=== PATIENT | female | born 1990 | race Caucasian/White ===

== ENCOUNTER 2016-10-16 06:40 | Day surgery (SDC) | payer BC ==
[2016-10-12 14:35] VITALS: BMI 36.6
[~2016-10-16 06:40] MED LIST: LACTATED RINGERS 1,000 ML IV SCH
[2016-10-16 07:05] VITALS: TEMP 97.7
[2016-10-16 07:19] LABS: Glucose,Whole Blood 99 mg/dL (75-99)
[2016-10-16] MEDS ORDERED: LIDOCAINE 1% INJ 10MG/ML (20 ML MDV) ONE (08:00)
[2016-10-16] MEDS ORDERED: PROPOFOL 10 MG/ML 20 ML VIAL IV ONE (08:00)
[2016-10-16 08:32] VITALS: RESP 16
[2016-10-16 08:55] VITALS: BP 146/82; PULSE 86
--- NOTE | 2016-10-16 09:09 | P.PCN ---
Date of Procedure: 10/16/16 Procedure(s) Performed: Procedures: 1. Esophagogastroduodenoscopy and biopsy. 2. Colonoscopy and biopsy. Preoperative diagnosis: Diarrhea and gastroesophageal reflux. Postoperative diagnosis: 1. Small sliding hiatal hernia with no obvious esophagitis or complicated reflux disease. 2. Mild antral gastritis. 3. Normal colon and terminal ileum. 4. Biopsies obtained from the duodenum, antrum , esophagus, terminal ileum and right colon. Preparation: HalfLytely prep. Sedation: Was provided by anesthesia. Brief clinical history: The patient is a 26-year-old female who was evaluated in the office earlier this month regarding reflux symptoms and diarrhea. She was diagnosed with gastroesophageal reflux disease in 2007 and apparently her symptoms has worsened over the course of the prior month or so despite taking omeprazole 40 mg daily since she was 22. No alarm symptoms. Her omeprazole was increased to twice a day the first week of September and apparently that hasn't improved her heartburn by 75% or so. In addition, the patient has had diarrhea for the last year having 6-7 bowel movements daily, loose and urgent, with no bleeding. No weight loss. This evaluation is to assess for complicated reflux disease inflammatory bowel disease or other pathology. Procedure: With the patient on her left lateral decubitus position and after informed consent and adequate sedation, I passed the Olympus-GIF 160 video upper endoscope through the cricopharyngeus down the esophagus. GE junction was around 36 cm from the incisors and there was a small 1-2 cm sliding hiatal hernia. The esophagus did not show any erosions, ulcers, strictures or [place]' s esophagus. The endoscope was then advanced into the stomach which was insufflated with air and inspected in detail including the retroflex view in the cardia. There was some mottling and erythema in the antrum but no ulcers or erosions. Pyloric channel, duodenal bulb, post bulbar area and descending duodenum appeared within normal limits. Because of her symptoms, I obtained biopsies from the duodenum, antrum and esophagus then the endoscope was withdrawn and I then proceeded to do colonoscopy. Perianal area did not show any fissures or fistulas. There were no masses felt on digital rectal examination. The Olympus CFQ 160L video colonoscope was then inserted in the rectum in the usual fashion and advanced to the cecum. I intubated the ileocecal valve and examined the terminal ileum as well. Terminal ileum and colon appeared healthy with no edema, erythema, friability, ulceration, exudation or spontaneous bleeding. I obtained biopsies from the terminal ileum and right colon and I retroflexed endoscope in the rectum before the endoscope was withdrawn. The patient tolerated the procedure well. Plan: The patient was reassured. I discussed with her parents who are with her today. She will follow-up in the office as planned early next month and we will keep you updated on her progress.
== END 2016-10-16 09:26 | disposition home or self-care (01) ==
LOC: ORWHC2ENDO 06:40
DX: K29.50 Unspecified chronic gastritis without bleeding (principal); K44.9 Diaphragmatic hernia without obstruction or gangrene; K21.0 Gastro-esophageal reflux disease with esophagitis; E11.9 Type 2 diabetes mellitus without complications; F41.9 Anxiety disorder, unspecified; J45.909 Unspecified asthma, uncomplicated; E03.9 Hypothyroidism, unspecified; Z79.84 Long term (current) use of oral hypoglycemic drugs; Z79.899 Other long term (current) drug therapy; Z79.51 Long term (current) use of inhaled steroids
CPT/HCPCS: 81025; 88305; 88342; 45380; 43239; J2001; J2704

== ENCOUNTER → 2016-11-15 | Outpatient (CLI) | payer BC ==
[2016-11-15 07:03] LABS: CH 25.1; CHCM 32.2; HCT 36.5 % (34.0-46.0); HGB 11.8 gm/dL (11.4-16.0); MCH 25.3 pg (25.0-35.0); MCHC 32.4 g/dL (31.0-37.0); MCV 78.2 fL (80.0-100.0); Mean Platelet Volume 7.1; RBC 4.67 m/uL (3.80-5.40); RDW 13.8 % (11.5-15.5); WBC 10.1 k/uL (3.8-10.6)
[2016-11-15 07:14] LABS: AST 12 U/L (14-36); Blood Urea Nitrogen 10 mg/dL (7-17); Carbon Dioxide 25 mmol/L (22-30); Chloride 107 mmol/L (98-107); Glucose 103 mg/dL (74-99); Non-African American GFR(MDRD) >60 (>60 ml/min/1.73 sqM); Total Bilirubin 0.4 mg/dL (0.2-1.3); Total Protein 6.8 g/dL (6.3-8.2)
[2016-11-15 08:01] LABS: ALT 15 U/L (9-52); Alkaline Phosphatase 81 U/L (38-126); Anion Gap 10 mmol/L; Calcium 9.2 mg/dL (8.4-10.2); Potassium 4.3 mmol/L (3.5-5.1); Sodium 142 mmol/L (137-145)
[2016-11-15 13:12] LABS: Hemoglobin A1C 5.6 % (4.2-6.1)
== END ==
LOC: LABWHC1 06:34
PROVIDERS: ATTEND Physician Assistant
DX: R53.83 Other fatigue (principal)
CPT/HCPCS: 36415; 80053; 83036; 84443; 85027

== ENCOUNTER → 2016-11-15 | Outpatient (CLI) | payer BC ==
--- NOTE | 2016-11-15 09:26 | NM ---
EXAMINATION TYPE: NM gastric emptying study DATE OF EXAM: 11/15/2016 9:00 AM COMPARISON: NONE HISTORY: Gastroesophageal reflux Following administration of 2.2 mCi Tc 99m Sulfur Colloid with 1 cup of oatmeal projection images of the abdomen were obtained 10 minutes post ingestion. When possible, both anterior and posterior proje ction images were obtained to allow the calculation of the geometric mean activity. Clearance: 88% % T1-enhanced Half-life: 25 min Gastroesophageal reflux: None IMPRESSION: Gastric emptying: Normal Gastroesophageal reflux: None Gastric emptying normal percentage values: 30 minutes: <70% of retention (> 30% emptying) suggests abnormally fast emptying. 60 minutes: <90% retention (>10% emptying) is normal; less than 30% retention (>70% emptying) suggest s abnormally rapid emptying. 90 minutes: <65% retention (> 35% emptying) is normal. 120 minutes: <60% retention (> 40% emptying) is normal. 180 minutes: <30% retention (> 70% emptying) is normal. Gastric emptying T-1/2: Solid: The normal range is 60-105 minutes Liquid only: Normal range is 10-45 minutes. Liquid only-children: At 60 minutes, normal range is 44-58 % . Liquid only-infants: At 60 minutes, normal range is 32-64 %. Additional references: Gastric Emptying Scintigraphy [email or web address]
== END | disposition home or self-care (01) ==
LOC: RADNMMAIN 06:49
PROVIDERS: ATTEND Internal Medicine
DX: K21.9 Gastro-esophageal reflux disease without esophagitis (principal)
CPT/HCPCS: 78264; A9541

== ENCOUNTER 2017-09-19 13:32 | Emergency (ER) | payer OTHER ==
[2017-09-19] MEDS ORDERED: METOCLOPRAMIDE 5 MG/ML 2 ML VIAL IVP STA (14:27)
[2017-09-19] MEDS ORDERED: SODIUM CHLORIDE 0.9% 1,000 ML IV STA (14:27)
[2017-09-19] MEDS ORDERED: ONDANSETRON 4 MG/2 ML VIAL IVP STA (14:27)
[2017-09-19] MEDS ORDERED: MORPHINE SULFATE 4 MG/ML SYRINGE IVP STA (14:27)
[2017-09-19] MEDS ORDERED: FAMOTIDINE 20 MG/2 ML VIAL IV STA (14:29)
[2017-09-19 15:02] LABS: Basophils % (A) 0 %; Eosinophils % (A) 0 %; HCT 38.2 % (34.0-46.0); HGB 12.2 gm/dL (11.4-16.0); Hypochromasia Slight; Lymphocytes # (A) 1.4 k/uL (1.0-4.8); Lymphocytes % (A) 8 %; MCH 24.2 pg (25.0-35.0); MCHC 31.8 g/dL (31.0-37.0); Mean Platelet Volume 7.1; Microcytosis Slight; Monocytes # (A) 0.3 k/uL (0-1.0); Monocytes % (A) 2 %; Neutrophils # (A) 14.3 k/uL (1.3-7.7); Neutrophils % (A) 89 %; Platelet Count 399 k/uL (150-450); RBC 5.02 m/uL (3.80-5.40); RDW 14.4 % (11.5-15.5)
[2017-09-19 15:06] LABS: Appearance,Urine Clear (Clear); Bacteria,Urine Rare /hpf; Bilirubin,Urine Negative (Negative); Blood,Urine Negative (Negative); Color,Urine Yellow; Glucose,Urine (UA) Negative (Negative); Ketones,Urine 2+ (Negative); Leukocyte Esterase,Urine Trace (Negative); Mucus,Urine Rare /hpf; Protein,Urine Trace (Negative); RBC,Urine 2 /hpf (0-5); Specific Gravity,Urine 1.018 (1.001-1.035); Squamous Epithelial Cell,Urine 4 /hpf (0-4); Urobilinogen,Urine <2.0 mg/dL (<2.0); WBC,Urine 4 /hpf (0-5)
--- NOTE | 2017-09-19 15:08 | ED ---
Nausea/Vomiting/Diarrhea HPI - General Chief complaint: Nausea/Vomiting/Diarrhea Stated complaint: Vomiting/Headache Time Seen by Provider: 09/19/17 14:06 Source: patient Mode of arrival: wheelchair Limitations: no limitations - History of Present Illness Initial comments: 27 years old who have a headache ongoing for last 18 days now she has nausea she threw up multiple times this morning she said she vomited more than 30 times since morning she denies any history of peptic ulcer disease no history of migraines herself but she does have a family history of migraines and mom has a history of migraines she had the seen her primary care Of days ago they were a head CT she had a head CT done this morning which was reviewed by myself it is within normal range and test is unremarkable. She denies any fever no chills no neck stiffness no signs of any meningitis no chest pain or shortness of breath no abdominal pain no frequency urgency dysuria no symptoms of TIA or CVA - Related Data Home Medications Medication Instructions Recorded Confirmed Budesonide-Formot 160-4.5 Mcg 1 puff INHALATION RT-BID 10/12/16 09/19/17 [Symbicort 160-4.5 Mcg Inhaler] Ethynodiol D-Ethinyl Estradiol 1 tab PO DAILY 09/19/17 09/19/17 [Zovia 1-35E Tablet] FLUoxetine HCL [PROzac] 20 mg PO DAILY 09/19/17 09/19/17 Lipase/Protease/Amylase [Melquiades Brewster 12,000 units PO DAILY 09/19/17 09/19/17 12,000 Units Capsule] Pc Maintenance Technician Thyroid 30mg 30 mg PO DAILY 09/19/17 09/19/17 Omeprazole 40 mg PO BID 09/19/17 09/19/17 Previous Rx's Medication Instructions Recorded Amoxicillin 500 mg PO Q8H #30 capsule 09/19/17 oxyCODONE-APAP 5-325MG [Percocet 1 tab PO Q6HR PRN #10 tab 09/19/17 5-325 mg] predniSONE 50 mg PO DAILY #5 tablet 09/19/17 Allergies Allergy/AdvReac Type Severity Reaction Status Date / Time No Known Allergies Allergy Verified 09/19/17 14:19 Review of Systems ROS Statement: Those systems with pertinent positive or pertinent negative responses have been documented in the HPI. ROS Other: All systems not noted in ROS Statement are negative. Past Medical History Past Medical History: Asthma, Diabetes Mellitus, GERD/Reflux, Thyroid Disorder Additional Past Medical History / Comment(s): vomiting, diarrhea, back pain History of Any Multi-Drug Resistant Organisms: None Reported Past Surgical History: Orthopedic Surgery Past Anesthesia/Blood Transfusion Reactions: No Reported Reaction Past Psychological History: Anxiety, Depression Smoking Status: Never smoker Past Alcohol Use History: None Reported Past Drug Use History: None Reported - Past Family History Mother Family Medical History: No Reported History General Exam - General Exam Comments Initial Comments: General: The patient is awake and alert, in mild distress Skin: Skin is warm and dry and no rashes or lesions are noted. Eye: Pupils are equal, round and reactive to light, extra-ocular movements are intact; there is normal conjunctiva bilaterally. Ears, nose, mouth and throat: There are moist mucous membranes and no oral lesions. Neck: The neck is supple, there is no tenderness or JVD. Mild tenderness over the frontal sinuses bilaterally as well as over the ethmoid sinuses Cardiovascular: There is a regular rate and rhythm. No murmur, rub or gallop is appreciated. Respiratory: To auscultation bilateral, no wheezing no rhonchi no distress respiratory medina noticed Gastrointestinal: Soft, non-distended, non-tender abdomen without masses or organomegaly noted. There is no rebound or guarding present. Bowel sounds are unremarkable. Back: There is no tenderness to palpation in the midline. There is no obvious deformity. Musculoskeletal: Normal ROM, no tenderness, There is no pedal edema. There is no calf tenderness or swelling. No cords were appreciated. Neurological: CN II-XII intact, Cranial nerves III through XII are intact. There are no obvious motor or sensory deficits. Coordination appears grossly intact. Speech is normal. Psychiatric: Cooperative, appropriate mood & affect, normal judgment. Limitations: no limitations Course Vital Signs 09/19/17 09/19/17 13:40 15:48 Temperature 98.5 F Pulse Rate 88 87 Respiratory 18 18 Rate Blood Pressure 128/78 123/67 O2 Sat by Pulse 100 100 Oximetry - Reevaluation(s) Reevaluation #1: As reassessed at 1630, she is feeling better white count is elevated most probably secondary to emesis there is a left shift compressive metabolic panel is within normal range she is not nauseous anymore considering urological CT tones in the urine didn't do a trial of by mouth fluid she felt that if she keeps it down the wrong quite and discharge her CT of the brain was normal which was done as an outpatient by primary care and she does have a sinusitis and begun on Saturday course of antibiotics 09/19/17 16:40 Medical Decision Making - Lab Data Result diagrams: 09/19/17 14:42 09/19/17 14:42 Lab Results 09/19/17 09/19/17 09/19/17 Range/Units 14:42 14:42 14:50 WBC 16.0 H (3.8-10.6) k/uL RBC 5.02 (3.80-5.40) m/uL Hgb 12.2 (11.4-16.0) gm/dL Hct 38.2 (34.0-46.0) % MCV 76.0 L (80.0-100.0) fL MCH 24.2 L (25.0-35.0) pg MCHC 31.8 (31.0-37.0) g/dL RDW 14.4 (11.5-15.5) % Plt Count 399 (150-450) k/uL Neutrophils % 89 % Lymphocytes % 8 % Monocytes % 2 % Eosinophils % 0 % Basophils % 0 % Neutrophils # 14.3 H (1.3-7.7) k/uL Lymphocytes # 1.4 (1.0-4.8) k/uL Monocytes # 0.3 (0-1.0) k/uL Eosinophils # 0.0 (0-0.7) k/uL Basophils # 0.0 (0-0.2) k/uL Hypochromasia Slight Microcytosis Slight Sodium 138 (137-145) mmol/L Potassium 4.5 (3.5-5.1) mmol/L Chloride 104 (98-107) mmol/L Carbon Dioxide 22 (22-30) mmol/L Anion Gap 12 mmol/L BUN 14 (7-17) mg/dL Creatinine 0.61 (0.52-1.04) mg/dL Est GFR (MDRD) Af Amer >60 (>60 ml/min/1.73 sqM) Est GFR (MDRD) Non-Af >60 (>60 ml/min/1.73 sqM) Glucose 104 H (74-99) mg/dL Calcium 9.4 (8.4-10.2) mg/dL Total Bilirubin 0.3 (0.2-1.3) mg/dL AST 19 (14-36) U/L ALT 25 (9-52) U/L Alkaline Phosphatase 98 (38-126) U/L Total Protein 7.1 (6.3-8.2) g/dL Albumin 4.0 (3.5-5.0) g/dL Amylase 78 (30-110) U/L Lipase 108 (23-300) U/L Urine Color Yellow Urine Appearance Clear (Clear) Urine pH 8.0 (5.0-8.0) Ur Specific [place] 1.018 (1.001-1.035) Urine Protein Trace H (Negative) Urine Glucose (UA) Negative (Negative) Urine Ketones 2+ H (Negative) Urine Blood Negative (Negative) Urine Nitrite Negative (Negative) Urine Bilirubin Negative (Negative) Urine Urobilinogen <2.0 (<2.0) mg/dL Ur Leukocyte Esterase Trace H (Negative) Urine RBC 2 (0-5) /hpf Urine WBC 4 (0-5) /hpf Ur Squamous Epith Cells 4 (0-4) /hpf Urine Bacteria Rare H (None) /hpf Urine Mucus Rare H (None) /hpf Disposition Clinical Impression: Headache, Sinusitis, Intractable nausea and vomiting Disposition: HOME SELF-CARE Condition: Good Instructions: Acute Nausea and Vomiting in Children (ED), Acute Nausea and Vomiting (ED) Prescriptions: Amoxicillin 500 mg PO Q8H #30 capsule oxyCODONE-APAP 5-325MG [Percocet 5-325 mg] 1 tab PO Q6HR PRN #10 tab PRN Reason: Pain predniSONE 50 mg PO DAILY #5 tablet Referrals: Naomi Soliz DO [Primary Care Provider] - 1-2 days
[2017-09-19 15:11] LABS: ALT 25 U/L (9-52); AST 19 U/L (14-36); Alkaline Phosphatase 98 U/L (38-126); Amylase 78 U/L (30-110); Anion Gap 12 mmol/L; Blood Urea Nitrogen 14 mg/dL (7-17); Calcium 9.4 mg/dL (8.4-10.2); Carbon Dioxide 22 mmol/L (22-30); Chloride 104 mmol/L (98-107); Glucose 104 mg/dL (74-99); Lipase 108 U/L (23-300); Potassium 4.5 mmol/L (3.5-5.1); Sodium 138 mmol/L (137-145); Total Bilirubin 0.3 mg/dL (0.2-1.3); Total Protein 7.1 g/dL (6.3-8.2)
[2017-09-19] MEDS ORDERED: KETOROLAC 30 MG/ML 1 ML VIAL IVP STA (15:50)
[2017-09-19] MEDS ORDERED: DEXAMETHASONE SOD PHOSPHATE 10 MG/ML 1 ML VIAL IV STA (16:16)
[2017-09-19 17:15] VITALS: BP 117/71; PULSE 83; RESP 17; TEMP 97.4
== END 2017-09-19 17:25 | disposition home or self-care (01) ==
LOC: EC 13:32
DX: J32.9 Chronic sinusitis, unspecified (principal); R11.2 Nausea with vomiting, unspecified; J45.909 Unspecified asthma, uncomplicated; K21.9 Gastro-esophageal reflux disease without esophagitis; E07.9 Disorder of thyroid, unspecified; Z79.3 Long term (current) use of hormonal contraceptives; Z79.51 Long term (current) use of inhaled steroids; Z79.899 Other long term (current) drug therapy
CPT/HCPCS: 36415; 80053; 82150; 83690; 85025; 81001; 99284; 96374; 96375 ×5; 96361; J2270; J1100; J2765; J2405; J1885

== ENCOUNTER → 2017-09-19 | Outpatient (CLI) | payer OTHER ==
--- NOTE | 2017-09-19 13:26 | CT ---
EXAMINATION TYPE: CT brain wo con DATE OF EXAM: 09/19/2017 COMPARISON: 06/11/2011 HISTORY: Headache with nausea and vomiting CT DLP: 945.[address] of the brain was performed. The ventricles, basal cisterns and sulci overlying the cerebral convexities demonstrate a normal appe arance. There is no evidence for intracranial hemorrhage or sulcal effacement. No mass effects are seen. Osseous calvarium is intact. If symptoms persist consider MRI as clinically warranted. Mild mucosal thickening left maxillary sin us much improved from prior study. IMPRESSION: 1. No acute intracranial process is seen at this time. Mild chronic sinusitis left maxillary sinus.
== END | disposition home or self-care (01) ==
LOC: RADCTMAIN 12:05
PROVIDERS: ATTEND Nurse Practitioner Family
DX: G44.001 Cluster headache syndrome, unspecified, intractable (principal); N91.2 Amenorrhea, unspecified; R11.2 Nausea with vomiting, unspecified
CPT/HCPCS: 70450; 81025

== ENCOUNTER → 2017-10-08 | Outpatient (CLI) | payer OTHER ==
--- NOTE | 2017-10-08 21:13 | US ---
EXAMINATION TYPE: US pelvic complete DATE OF EXAM: 10/08/2017 COMPARISON: NONE CLINICAL HISTORY: E28.2 PCOS. patient having issues with finding the right control TECHNIQUE: TA Date of LMP: 09/24/2017 EXAM MEASUREMENTS: Uterus: 7.0 x 3.9 x 2.2 cm Endometrial Stripe: 0.8 cm Right Ovary: 2.7 x 1.9 x 1.5 cm Left Ovary: 3.4 x 2.4 x 1.7 cm 1. Uterus: Anteverted wnl 2. Endometrium: wnl 3. Right Ovary: wnl 4. Left Ovary: multiple follicles seen 5. Bilateral Adnexa: wnl 6. Posterior cul-de-sac: wnl IMPRESSION: Unremarkable transabdominal ultrasound. Left ovarian follicles are seen although poorly v isualized given the transabdominal technique only.
== END ==
LOC: RADUSWWP 16:04
PROVIDERS: ATTEND Family Medicine
DX: E28.2 Polycystic ovarian syndrome (principal)
CPT/HCPCS: 76856

== ENCOUNTER → 2018-05-29 | Outpatient (CLI) | payer OTHER ==
--- NOTE | 2018-05-29 09:47 | USB ---
Reason for exam: clinical finding. History: Patient is nulliparous. Family history of breast cancer in maternal grandmother at age 70, breast cancer in maternal aunt at age 60, and breast cancer in maternal cousin at age 30. Took hormonal contraceptives for 8 years. Indicated problem(s): non-bloody discharge in both breasts. Physical Findings: Nurse did not find any significant physical abnormalities on exam. US Breast BILAT Right complete breast ultrasound includes all four quadrants, the retroareolar region and axilla. Finding demonstrates no cystic or solid lesion seen. Left complete breast ultrasound includes all four quadrants, the retroareolar region and axilla. Finding demonstrates no cystic or solid lesion seen. These results were verbally communicated with the patient and result sheet given to the patient on 05/29/18. ASSESSMENT: Negative, BI-RAD 1 RECOMMENDATION: Clinical management of both breasts. Manage on a clinical basis with regard to bilateral white discharge.
== END | disposition home or self-care (01) ==
LOC: RADMAMWWP 06:58
PROVIDERS: ATTEND Family Medicine
DX: O92.6 Galactorrhea (principal)

== ENCOUNTER 2019-11-28 20:14 | Emergency (ER) | payer OTHER ==
[2019-11-28 20:25] VITALS: RESP 18
[2019-11-28] MEDS ORDERED: ACETAMINOPHEN TAB 500 MG TAB PO STA (20:34)
[2019-11-28] MEDS ORDERED: SODIUM CHLORIDE 0.9% 1,000 ML IV STA (20:34)
--- NOTE | 2019-11-28 20:51 | ED ---
General Adult HPI - General Chief complaint: Abdominal Pain Stated complaint: cramping 16 and half wks preg Time Seen by Provider: 11/28/19 20:27 Source: patient, RN notes reviewed, old records reviewed Mode of arrival: ambulatory Limitations: no limitations - History of Present Illness Initial comments: 29-year-old female presenting with lower abdominal cramping. Patient is 16 weeks . . Denies hematuria or dysuria. No urinary frequency. Pain has been present throughout the day today. She also reports pain in her low back. Pain is constant in nature bilateral lower pelvic and lower back pain. She reports vaginal discharge. Normal bowel movement today, no change in bowel movements. No vomiting. No fever or chills. No upper abdominal pain. Patient had called her ledge man who recommended she present to the emergency department. - Related Data Home Medications Medication Instructions Recorded Confirmed Budesonide-Formot 160-4.5 Mcg 1 puff INHALATION RT-BID 10/12/16 09/19/17 [Symbicort 160-4.5 Mcg Inhaler] Ethynodiol D-Ethinyl Estradiol 1 tab PO DAILY 09/19/17 09/19/17 [Zovia 1-35E Tablet] FLUoxetine HCL [PROzac] 20 mg PO DAILY 09/19/17 09/19/17 Lipase/Protease/Amylase [Melquiades Brewster 12,000 units PO DAILY 09/19/17 09/19/17 12,000 Units Capsule] Entertainment Reporter Thyroid 30mg 30 mg PO DAILY 09/19/17 09/19/17 Omeprazole 40 mg PO BID 09/19/17 09/19/17 Previous Rx's Medication Instructions Recorded Amoxicillin 500 mg PO Q8H #30 capsule 09/19/17 oxyCODONE-APAP 5-325MG [Percocet 1 tab PO Q6HR PRN #10 tab 09/19/17 5-325 mg] predniSONE 50 mg PO DAILY #5 tablet 09/19/17 Cephalexin [Keflex] 500 mg PO Q12HR #20 cap 11/28/19 Allergies Allergy/AdvReac Type Severity Reaction Status Date / Time No Known Allergies Allergy Verified 11/28/19 20:25 Review of Systems ROS Statement: Those systems with pertinent positive or pertinent negative responses have been documented in the HPI. ROS Other: All systems not noted in ROS Statement are negative. Past Medical History Past Medical History: Asthma, Diabetes Mellitus, GERD/Reflux, Thyroid Disorder Additional Past Medical History / Comment(s): vomiting, diarrhea, back pain History of Any Multi-Drug Resistant Organisms: None Reported Past Surgical History: Orthopedic Surgery Past Anesthesia/Blood Transfusion Reactions: No Reported Reaction Past Psychological History: Anxiety Smoking Status: Never smoker Past Alcohol Use History: None Reported Past Drug Use History: None Reported - Past Family History Mother Family Medical History: No Reported History General Exam Limitations: no limitations General appearance: alert, in no apparent distress Head exam: Present: atraumatic, normocephalic Eye exam: Present: normal appearance, PERRL ENT exam: Present: mucous membranes dry Neck exam: Present: normal inspection. Absent: tenderness, meningismus Respiratory exam: Present: normal lung sounds bilaterally. Absent: respiratory distress, wheezes Cardiovascular Exam: Present: regular rate, normal rhythm GI/Abdominal exam: Present: soft, normal bowel sounds. Absent: distended, tenderness, guarding, rebound Extremities exam: Present: normal inspection, normal capillary refill Back exam: Present: normal inspection. Absent: CVA tenderness (R), CVA tenderness (L) Neurological exam: Present: alert, oriented X3. Absent: motor sensory deficit Psychiatric exam: Present: anxious Skin exam: Present: warm, dry, intact. Absent: cyanosis, diaphoretic Course Vital Signs 11/28/19 11/28/19 20:23 21:31 Temperature 99.5 F 98.1 F Pulse Rate 101 H 90 Respiratory 18 18 Rate Blood Pressure 167/100 127/81 O2 Sat by Pulse 100 97 Oximetry Medical Decision Making - Medical Decision Making 29 yo female 16 weeks gestation with lower abdominal cramping. Patient well- appearing on exam with stable vitals. Ultrasound showing single live intrauterine at 16 weeks 5 days with heart tones at 150 cervical length of 3 cm. Normal CBC, normal CMP, urinalysis showing 4 white cells and many bacteria. She is asymptomatic. She will be treated for a symptomatic bacteriuria in . I did discuss case with Dr. Jimenez who is her [employer] ME[employer]IC. Who does recommend continued outpatient follow-up at this time and is agreeable with discharge. Patient reevaluated and she is feeling better, pain is resolved. She is instructed on oral hydration. And will return with worsening or changing symptoms. - Lab Data Result diagrams: 11/28/19 20:49 11/28/19 20:49 Lab Results 11/28/19 11/28/19 11/28/19 Range/Units 20:26 20:49 20:49 WBC 11.7 H (3.8-10.6) k/uL RBC 4.56 (3.80-5.40) m/uL Hgb 12.0 (11.4-16.0) gm/dL Hct 37.1 (34.0-46.0) % MCV 81.4 (80.0-100.0) fL MCH 26.4 (25.0-35.0) pg MCHC 32.4 (31.0-37.0) g/dL RDW 14.7 (11.5-15.5) % Plt Count 291 (150-450) k/uL Neutrophils % 71 % Lymphocytes % 23 % Monocytes % 3 % Eosinophils % 1 % Basophils % 0 % Neutrophils # 8.2 H (1.3-7.7) k/uL Lymphocytes # 2.7 (1.0-4.8) k/uL Monocytes # 0.3 (0-1.0) k/uL Eosinophils # 0.1 (0-0.7) k/uL Basophils # 0.0 (0-0.2) k/uL Sodium 136 L (137-145) mmol/L Potassium 3.7 (3.5-5.1) mmol/L Chloride 105 (98-107) mmol/L Carbon Dioxide 24 (22-30) mmol/L Anion Gap 7 mmol/L BUN 4 L (7-17) mg/dL Creatinine 0.49 L (0.52-1.04) mg/dL Est GFR (CKD-EPI)AfAm >90 (>60 ml/min/1.73 sqM) Est GFR (CKD-EPI)NonAf >90 (>60 ml/min/1.73 sqM) Glucose 107 H (74-99) mg/dL Calcium 9.3 (8.4-10.2) mg/dL Total Bilirubin 0.1 L (0.2-1.3) mg/dL AST 25 (14-36) U/L ALT 21 (4-34) U/L Alkaline Phosphatase 65 (38-126) U/L Total Protein 6.6 (6.3-8.2) g/dL Albumin 3.6 (3.5-5.0) g/dL Amylase 49 (30-110) U/L Lipase 79 (23-300) U/L Urine Color Light Yellow Urine Appearance Cloudy H (Clear) Urine pH 6.0 (5.0-8.0) Ur Specific [place] 1.011 (1.001-1.035) Urine Protein Negative (Negative) Urine Glucose (UA) Negative (Negative) Urine Ketones Negative (Negative) Urine Blood Negative (Negative) Urine Nitrite Negative (Negative) Urine Bilirubin Negative (Negative) Urine Urobilinogen <2.0 (<2.0) mg/dL Ur Leukocyte Esterase Moderate H (Negative) Urine RBC 2 (0-5) /hpf Urine WBC 4 (0-5) /hpf Ur Squamous Epith Cells 1 (0-4) /hpf Amorphous Sediment Rare H (None) /hpf Urine Bacteria Many H (None) /hpf Urine Mucus Rare H (None) /hpf Disposition Clinical Impression: Abdominal pain affecting , Asymptomatic bacteriuria during Disposition: HOME SELF-CARE Condition: Good Instructions (If sedation given, give patient instructions): Abdominal Pain in (ED) Prescriptions: Cephalexin [Keflex] 500 mg PO Q12HR #20 cap Is patient prescribed a controlled substance at d/c from ED?: No Referrals: Naomi Soliz DO [Primary Care Provider] - 1-2 days Anu Jimenez MD [STAFF PHYSICIAN] - 1-2 days Time of Disposition: 21:50
[2019-11-28 20:54] LABS: Basophils % (A) 0 %; Eosinophils # (A) 0.1 k/uL (0-0.7); Eosinophils % (A) 1 %; HCT 37.1 % (34.0-46.0); Lymphocytes # (A) 2.7 k/uL (1.0-4.8); Lymphocytes % (A) 23 %; MCH 26.4 pg (25.0-35.0); MCHC 32.4 g/dL (31.0-37.0); MCV 81.4 fL (80.0-100.0); Mean Platelet Volume 8.5; Monocytes # (A) 0.3 k/uL (0-1.0); Monocytes % (A) 3 %; Neutrophils # (A) 8.2 k/uL (1.3-7.7); Neutrophils % (A) 71 %; Platelet Count 291 k/uL (150-450); RBC 4.56 m/uL (3.80-5.40); RDW 14.7 % (11.5-15.5); WBC 11.7 k/uL (3.8-10.6)
[2019-11-28 20:56] LABS: Amorphous Sediment,Urine Rare /hpf; Appearance,Urine Cloudy (Clear); Bacteria,Urine Many /hpf; Bilirubin,Urine Negative (Negative); Blood,Urine Negative (Negative); Color,Urine Light Yellow; Glucose,Urine (UA) Negative (Negative); Ketones,Urine Negative (Negative); Leukocyte Esterase,Urine Moderate (Negative); Mucus,Urine Rare /hpf; Nitrite,Urine Negative (Negative); Protein,Urine Negative (Negative); RBC,Urine 2 /hpf (0-5); Specific Gravity,Urine 1.011 (1.001-1.035); Squamous Epithelial Cell,Urine 1 /hpf (0-4); Urobilinogen,Urine <2.0 mg/dL (<2.0); WBC,Urine 4 /hpf (0-5)
[2019-11-28 21:03] LABS: ALT 21 U/L (4-34); AST 25 U/L (14-36); African American GFR (CKD) >90 (>60 ml/min/1.73 sqM); Albumin 3.6 g/dL (3.5-5.0); Alkaline Phosphatase 65 U/L (38-126); Amylase 49 U/L (30-110); Anion Gap 7 mmol/L; Blood Urea Nitrogen 4 mg/dL (7-17); Calcium 9.3 mg/dL (8.4-10.2); Carbon Dioxide 24 mmol/L (22-30); Chloride 105 mmol/L (98-107); Glucose 107 mg/dL (74-99); Non-African American GFR(CKD) >90 (>60 ml/min/1.73 sqM); Potassium 3.7 mmol/L (3.5-5.1); Sodium 136 mmol/L (137-145); Total Bilirubin 0.1 mg/dL (0.2-1.3); Total Protein 6.6 g/dL (6.3-8.2)
--- NOTE | 2019-11-28 21:28 | US ---
EXAMINATION TYPE: US OB >= 14 wk fetus DATE OF EXAM: 11/28/2019 COMPARISON: None CLINICAL HISTORY: ab pain in preg TECHNIQUE: Transabdominal ultrasound of the gravid uterus. GESTATIONAL AGE / DATING Physician Established: ( 16 weeks/5 days) EDC: 05/12/20 Dates by LMP: (16 weeks/ 5 days) EDC: 05/12/20 Dates by First Scan: not available Dates by Current Scan: ( 16 weeks/5 days) EDC: 05/10/20 Beta HCG (if available): Not available at this time SURVEY IUP: Single PLACENTA: Posterior PREVIA: Low Lying ISABEL: 11.9 cm CERVICAL LENGTH (transabdominal: norm > 3.0cm): 3.0 cm BIOMETRY PRESENTATION: Breech BPD: 3.5 cm 16 weeks / 6 days HC: 12.9 cm 16 weeks / 4 days AC: 10.9 cm 16 weeks / 6 days FL: 2.2 cm 16 weeks / 5 days ESTIMATED WEIGHT IN GRAMS: 166 grams ESTIMATED WEIGHT IN LBS/OZ: 0 lbs. 6 oz. WEIGHT PERCENTAGE BASED ON ESTABLISHED DATES: 71% HC/AC: 1.2 FL/AC: 20.3 HEART RATE: 150 bpm RHYTHM: Normal MATERNAL WALL MEASUREMENT: 3.7 cm from skin to anterior uterine wall (if exam limited due to body hab itus). IMPRESSION: Single viable intrauterine . Breech position at this time.
[2019-11-28 21:32] VITALS: BP 127/81; PULSE 90; TEMP 98.1
== END 2019-11-28 22:02 | disposition home or self-care (01) ==
LOC: EC 20:14
DX: O26.892 Other specified pregnancy related conditions, second trimester (principal); R10.30 Lower abdominal pain, unspecified; R10.2 Pelvic and perineal pain; M54.5 Low back pain; O99.89 Other specified diseases and conditions complicating pregnancy, childbirth and the puerperium; R82.71 Bacteriuria; O99.282 Endocrine, nutritional and metabolic diseases complicating pregnancy, second trimester; E07.9 Disorder of thyroid, unspecified; O99.342 Other mental disorders complicating pregnancy, second trimester; F41.9 Anxiety disorder, unspecified; O99.512 Diseases of the respiratory system complicating pregnancy, second trimester; J45.909 Unspecified asthma, uncomplicated; O99.612 Diseases of the digestive system complicating pregnancy, second trimester; K21.9 Gastro-esophageal reflux disease without esophagitis; Z3A.16 16 weeks gestation of pregnancy; Z79.51 Long term (current) use of inhaled steroids; Z79.899 Other long term (current) drug therapy; Z79.890 Hormone replacement therapy
CPT/HCPCS: 36415; 76805; 80053; 81001; 82150; 83690; 85025; 96360; 99284

== ENCOUNTER 2020-03-07 13:42 | Outpatient (CLI) | payer OTHER ==
[2020-03-07] MEDS ORDERED: ACETAMINOPHEN TAB 325 MG TAB PO STA (14:57)
[2020-03-07 15:17] VITALS: PULSE 103; RESP 20; TEMP 99.2
[2020-03-07 15:32] LABS: Basophils % (A) 0 %; Eosinophils # (A) 0.1 k/uL (0-0.7); Eosinophils % (A) 0 %; HCT 35.9 % (34.0-46.0); HGB 11.2 gm/dL (11.4-16.0); Lymphocytes # (A) 2.3 k/uL (1.0-4.8); Lymphocytes % (A) 18 %; MCH 26.4 pg (25.0-35.0); MCHC 31.2 g/dL (31.0-37.0); MCV 84.8 fL (80.0-100.0); Mean Platelet Volume 9.2; Monocytes # (A) 0.4 k/uL (0-1.0); Monocytes % (A) 3 %; Neutrophils % (A) 78 %; Platelet Count 279 k/uL (150-450); RBC 4.23 m/uL (3.80-5.40); RDW 15.4 % (11.5-15.5); WBC 12.9 k/uL (3.8-10.6)
[2020-03-07 15:37] LABS: ALT 13 U/L (4-34); AST 19 U/L (14-36); African American GFR (CKD) >90 (>60 ml/min/1.73 sqM); Blood Urea Nitrogen 7 mg/dL (7-17); LDH 385 U/L (313-618); Non-African American GFR(CKD) >90 (>60 ml/min/1.73 sqM); Uric Acid 6.6 mg/dL (3.7-7.4)
[2020-03-07 15:43] LABS: Protein/Creatinine Ratio,Urine 0.161
[2020-03-07 15:45] LABS: Creatinine,Urine Random 62.1 mg/dL
[2020-03-07 16:18] VITALS: BP 130/80
--- NOTE | 2020-03-09 08:51 | P.MSEPDOC ---
Presenting Problems - Arrival Data Date of Arrival on Unit: 03/07/20 Time of Arrival on Unit: 13:50 Mode of Transport: Ambulatory - Complaint OB-Reason for Admission/Chief Complaint: Elevated Blood Pressure Medical History - Information : 1 Para: 0 Term: 0 : 0 Abortions: Spontaneous or Elective: 0 Number of Living Children: 0 - Gestational Age Gestational Age by ERON (wks/days): 30 Weeks and 4 Days - History Comment: type 2 diabetes (metformin), hypothyroidism (thyroid) Review of Systems - Review of Systems Constitutional: No problems Breast: No problems ENT: No problems Cardiovascular: No problems Respiratory: No problems Gastrointestinal: No problems Genitourinary: No problems Musculoskeletal: No problems Neurological: No problems Skin: No problems Vital Signs - Temperature Temperature: 99.2 F Temperature Source: Oral - Pulse Right Brachial Pulse Rate: 103 Pulse Assessment Method: Auscultation - Respirations Respiratory Rate: 20 Oxygen Delivery Method: Room Air O2 Sat by Pulse Oximetry: 98 - Blood Pressure Right Arm Blood Pressure: 130/80 Blood Pressure Mean: 96 Blood Pressure Source: Automatic Cuff Medical Screen Scoring (Pre) - Cervical Exam Dilation: Exam Deferred Effacement: Exam Deferred - Uterine Contractions Frequency: N/A Duration: N/A Intensity: N/A - Maternal Vital Signs Maternal Temperature: N/A Maternal Blood Pressure: Diastolic > 89 = 1 Signs of Preeclampsia: Headache = 1 Maternal Respirations: N/A - Maternal Trauma Maternal Trauma: N/A - Assessment - Baby A Baseline FHR: 135 Heart Rate - NICHD Category: Category I (Normal) = 0 NST: Reactive Position: N/A Station: N/A - Total Score - Baby A Total Score - Baby A: 2 - Total Score - Baby B Total Score - Baby B: 2 - Total Score - Baby C Total Score - Baby C: 2 - Level of Risk - Baby A Level of Risk - Baby A: Low (0-5) - Level of Risk - Baby B Level of Risk - Baby B: Low (0-5) - Level of Risk - Baby C Level of Risk - Baby C: Low (0-5) Physician Notification (Pre) - Physician Notified Spoke With: eder New Order Received: Yes - Notification Comment Comment: discharge home. see pot MES scoring in [facility]. Medical Screen Scoring (Post) - Cervical Exam Dilation: Exam Deferred Effacement: Exam Deferred - Uterine Contractions Frequency: N/A Duration: N/A Intensity: N/A - Maternal Vital Signs Maternal Temperature: N/A Maternal Blood Pressure: N/A Signs of Preeclampsia: Headache = 1 Maternal Respirations: N/A - Maternal Trauma Maternal Trauma: N/A - Assessment - Baby A Heart Rate: 135 Heart Rate - NICHD Category: Category I (Normal) = 0 NST: Reactive Position: N/A Station: N/A - Total Score Total Score - Baby A: 1 Total Score - Baby B: 1 Total Score - Baby C: 1 - Post Treatment Level of Risk Post Treatment Level of Risk - Baby A: Low (0-5) Post Treatment Level of Risk - Baby B: Low (0-5) Post Treatment Level of Risk - Baby C: Low (0-5) Physician Notification (Post) - Physician Notified Physician Notified Date: 03/07/20 Physician Notified Time: 16:14 Spoke WithAung gaines - Notification Comment Comment: followw up on this week as scheduled. to follow blood pressure guidelines as discussed by dr gaines in office. discuss signs and symptoms Disposition - Disposition OB Disposition: Discharge to home Discharge Date: 03/07/20 Discharge Time: 16:17 I agree with the RN Medical Screening Exam: Yes Risk & Benefit of care provided described in d/c instruction: Yes Diagnosis: PIH
== END 2020-03-07 16:30 | disposition home or self-care (01) ==
LOC: FBPOP 13:42
PROVIDERS: ATTEND Obstetrics & Gynecology
DX: O13.3 Gestational [pregnancy-induced] hypertension without significant proteinuria, third trimester (principal); Z3A.30 30 weeks gestation of pregnancy
CPT/HCPCS: 59025; 82565; 82570; 83615; 84156; 84450; 84460; 84520; 84550; 85025; 99215

== ENCOUNTER 2020-03-14 11:43 | Outpatient (CLI) | payer OTHER ==
[2020-03-14 13:49] VITALS: BP 125/80; PULSE 89; RESP 20; TEMP 98.4
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
== END 2020-03-14 13:39 | disposition home or self-care (01) ==
LOC: FBPOP 11:43
PROVIDERS: ATTEND Obstetrics & Gynecology
DX: O71.9 Obstetric trauma, unspecified (principal); Z3A.31 31 weeks gestation of pregnancy
CPT/HCPCS: 59025; 99213

== ENCOUNTER 2020-03-25 09:25 | Outpatient (CLI) | payer OTHER ==
[2020-03-25 10:20] LABS: Basophils % (A) 0 %; Eosinophils # (A) 0.1 k/uL (0-0.7); Eosinophils % (A) 1 %; HCT 35.9 % (34.0-46.0); HGB 11.3 gm/dL (11.4-16.0); Lymphocytes # (A) 2.5 k/uL (1.0-4.8); Lymphocytes % (A) 16 %; MCHC 31.6 g/dL (31.0-37.0); MCV 85.6 fL (80.0-100.0); Monocytes # (A) 0.5 k/uL (0-1.0); Monocytes % (A) 4 %; Neutrophils # (A) 11.6 k/uL (1.3-7.7); Neutrophils % (A) 78 %; Platelet Count 224 k/uL (150-450); RBC 4.19 m/uL (3.80-5.40); RDW 15.8 % (11.5-15.5)
[2020-03-25 11:53] VITALS: BP 139/90; PULSE 78; RESP 18; TEMP 96
[2020-03-25 11:55] LABS: Total Protein 24 Hour,Urine 920 mg/24hr (42.0-225.0); Total Volume 24 Hour,Urine 1000 mls (800-1800)
[2020-03-25] MEDS ORDERED: BETAMET ACET-BETAMETH SOD PHOS 6 MG/ML MDV IM SCH (12:30)
--- NOTE | 2020-03-25 12:39 | P.HPOB ---
History of Present Illness H&P Date: 03/25/20 Chief Complaint: preeclampsia at 33-3/7 weeks This is a 30 year old 1 para 0 woman with an estimated due date of 05/12/2020 based on first trimester ultrasound who presents at 33-3/7 weeks gestation with elevated 24-hour urine protein. The patient began having eleva dong blood pressures in the setting at approximately 30 weeks. She had negative laboratory evaluation and no proteinuria. She was started on home blood pressure monitoring and decreased activities and eventually required labetalol 200 mg twice a day starting at 32 weeks. She presented for routine visit yesterday and reported home blood pressures in the 130s to 140s over 80s to 90s however complain of a significant increase in bilateral lower extremity edema. She otherwise felt well with no other symptoms. She dipped 1+ protein in the office. 24 hour urine protein was initiated which she returns to labor and delivery to complete today. On evaluation in labor and delivery triage today she has a reactive NST. She has blood pressures in the 140s over 90s. She again complains of some bilateral lower extremity edema however otherwise feels well. Laboratory data shows 24-hour urine volume of 1000 M hours with a 24-hour urine protein of 920 mg. Platelets and LFTs are within normal limits however her uric acid is 7.0. After discussion of the situation with Dr. Valera maternal medicine specialist at [facility], the decision was made to transfer the patient for further evaluation and observation secondary to developing preeclampsia at early gestational age. Review of Systems Constitutional: Denies chills, Denies chronic headaches, Denies fever Ears, nose, mouth and throat: Denies headache Cardiovascular: Denies chest pain, Denies irregular heart beat, Denies shortness of breath Respiratory: Denies cough Gastrointestinal: Reports heartburn, Denies abdominal pain, Denies BRBPR, Denies nausea, Denies vomiting Genitourinary: Denies abnormal vaginal bleeding Musculoskeletal: Reports as per HPI, Reports low back pain Integumentary: Denies rash Neurological: Denies headaches, Denies visual changes Hematologic/Lymphatic: Denies easy bleeding, Denies easy bruising Past Medical History Past Medical History: Asthma, Diabetes Mellitus, GERD/Reflux, Thyroid Disorder Additional Past Medical History / Comment(s): vomiting, diarrhea, back pain History of Any Multi-Drug Resistant Organisms: None Reported Past Surgical History: Orthopedic Surgery Past Anesthesia/Blood Transfusion Reactions: No Reported Reaction Smoking Status: Never smoker - Past Family History Mother Family Medical History: No Reported History Medications and Allergies Home Medications Medication Instructions Recorded 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 Thyroid 30mg 30 mg PO DAILY MDD 30 09/19/17 03/25/20 History Omeprazole 40 mg PO DAILY MDD 1 tab 09/19/17 03/25/20 History metFORMIN HCL 500 mg PO DAILY MDD 500 03/07/20 03/25/20 History Labetalol [Trandate] 100 mg PO BID 03/25/20 03/25/20 History Pnv,Calcium 72/Iron/Folic Acid 1 each PO DAILY 03/25/20 03/25/20 History [ Plus Tablet] Allergies Allergy/AdvReac Type Severity Reaction Status Date / Time No Known Allergies Allergy Verified 03/25/20 09:42 Exam Vital Signs Temp Pulse Resp BP 03/25/20 09:47 96.0 F L 78 18 139/90 Intake and Output 03/24/20 03/25/20 03/25/20 22:59 06:59 14:59 Other: Weight 122.47 kg This is somewhat tearful, visibly gravid female. HEENT exam is unremarkable. The lungs are clear to auscultation bilaterally and the heart is of regular rate and rhythm. The abdomen is obese, gravid with no right upper quadrant pain or tenderness. She has 2+ bilateral lower extremity pitting edema with 2+ deep tendon reflexes and no clonus. Pelvic examination is deferred. heart tones are category 1 and she is not daron. Results Result Diagrams: 03/25/20 09:59 Abnormal Lab Results - Last 24 Hours (Table) 03/25/20 03/25/20 03/25/20 Range/Units 08:30 09:59 10:25 WBC 15.0 H (3.8-10.6) k/uL Hgb 11.3 L (11.4-16.0) gm/dL RDW 15.8 H (11.5-15.5) % Neutrophils # 11.6 H (1.3-7.7) k/uL U Random Total Protein 117 H (<12) mg/dL U Tot Protein 24h, Calc 920 H (42.0-225.0) mg/24hr Assessment and Plan (1) 33 weeks gestation of Current Visit: Yes Status: Acute Code(s): Z3A.33 - 33 WEEKS GESTATION OF SNOMED Code(s): 45981929 (2) Preeclampsia Current Visit: Yes Status: Acute Code(s): O14.90 - UNSPECIFIED PRE- ECLAMPSIA, UNSPECIFIED TRIMESTER SNOMED Code(s): 886698919 (3) Hypothyroid Current Visit: Yes Status: Acute Code(s): E03.9 - HYPOTHYROIDISM, UNSPECIFIED SNOMED Code(s): 65443482 Plan: This is a 30-year-old 1 para 0 woman at 33-3/7 weeks gestation with mild preeclampsia based on elevated blood pressures and 24-hour urine protein. Curre ntly no severe features. I reviewed with the patient and her in detail the diagnosis of preeclampsia, risks of the the condition and possible need for delivery should her symptoms progress. Unfortunately [facility] does not have the capability to care for 's under 35 weeks therefore we recommend transfer to a facility where this is possible. She also would benefit from the care and consultation of maternal medicine specialist in this situation. She was given her first dose of betamethasone and I reviewed the indications for this. All questions were answered and risks of transfer were reviewed including the potential hypertension on transport. She has no signs or symptoms of labor and status is reassuring by external monitoring.
[2020-03-25] MEDS ORDERED: LABETALOL 200 MG TAB PO STA (13:13)
== END 2020-03-25 13:29 | disposition home or self-care (01) ==
LOC: FBPOP 09:25
PROVIDERS: ATTEND Obstetrics & Gynecology
DX: O13.3 Gestational [pregnancy-induced] hypertension without significant proteinuria, third trimester (principal); O99.283 Endocrine, nutritional and metabolic diseases complicating pregnancy, third trimester; E03.9 Hypothyroidism, unspecified; Z3A.33 33 weeks gestation of pregnancy
CPT/HCPCS: 59025; 99215; 96372; 84156 ×2; 81050; 84450; 84460; 84550; 85025; J0702

== ENCOUNTER → 2020-11-15 | Outpatient (CLI) | payer BC ==
--- NOTE | 2020-11-15 10:32 | US ---
EXAMINATION TYPE: US abdomen complete DATE OF EXAM: 11/15/2020 COMPARISON: NONE CLINICAL HISTORY: R10.11 RUQ Abd pain,R11.2 nausea/vomiting. RUQ pain. NPO. EXAM MEASUREMENTS: Liver Length: 16.7 cm Gallbladder Wall: 0.2 cm CBD: 0.3 cm Spleen: 12.7 cm Right Kidney: 9.8 x4.1 x 4.2 cm Left Kidney: 11.1 x 3.9 x 5.0 cm Pancreas: wnl Liver: wnl Gallbladder: Multiple mobile echogenic foci Evidence for sonographic Muller's sign: neg CBD: wnl Spleen: wnl Right Kidney: Inferior pole obscured by bowel gas Left Kidney: wnl Upper IVC: wnl Abd Aorta: No AAA visualized The visualized liver is homogenous. The intrahepatic portion of the IVC and visualized abdominal aor ta are within normal limits. There is no evidence of shadowing mobile cholelithiasis. Common bile d uct is unremarkable. The visualized portions of the pancreas are homogenous. The spleen is unremark able. Kidneys are symmetric and free of hydronephrosis. No renal lesions are seen. IMPRESSION: No acute findings are evident.
== END | disposition home or self-care (01) ==
LOC: RADUSWWP 07:04
PROVIDERS: ATTEND Internal Medicine
DX: R10.11 Right upper quadrant pain (principal)
CPT/HCPCS: 76700

== ENCOUNTER 2022-06-26 11:41 | Day surgery (SDC) | payer OTHER ==
[2022-06-22 13:04] VITALS: BMI 38.2
[2022-06-26 12:08] VITALS: RESP 18; TEMP 97.3
[2022-06-26 12:24] LABS: Glucose,Whole Blood 93 mg/dL (70-110)
[2022-06-26] MEDS ORDERED: MIDAZOLAM 2 MG/2 ML VIAL ONE (12:33)
[2022-06-26] MEDS ORDERED: LACTATED RINGERS 800 ML IV ONE (12:55)
--- NOTE | 2022-06-26 12:58 | P.PCN ---
Date of Procedure: 06/26/22 Description of Procedure: Procedure: Lumbar Puncture . Preoperative Diagnoses: Pseudotumor cerebri Postoperative Diagnosis: Same Anesthesia: IV sedation with Versed and local Sedation by nurse Moderate sedation Anesthesia supervision time [id number] Anesthesia supervision time [id number] Condition: stable. Complications: none. Description of the procedure: She was brought to the procedure room on the stretcher. After consent was signed. All discussions were had regarding the risks benefits and alternatives to the procedure. After consent was signed, the patient was laid in the left lateral decubitus position. She was given sedation due to severe anxiety. At that point the level LIII-L4 was palpated. A 27-gauge needle was used to anesthetize the skin and subcu tissue using 1% lidocaine. After the needle was removed, a 22-gauge spinal needle was placed through the subcutaneous tissue into the spinal canal. The opening pressure was noted to be 39 cm of water, closing pressure was noted to be 22 cm of water after a therapeutic tap of about 15 mL fluid. The patient did very well. We did discuss potential for a spinal headache and the treatments for that. The patient will be in the recovery room for about one hour.
[2022-06-26 13:26] VITALS: BP 125/79; PULSE 88
[2022-06-26 21:41] LABS: Glucose,CSF 55 mg/dL (40-70); Total Protein,CSF 26 mg/dL (12-60)
== END 2022-06-26 13:30 | disposition home or self-care (01) ==
LOC: ORPAIN 11:41
PROVIDERS: ATTEND Hospitalist
DX: G93.2 Benign intracranial hypertension (principal); F41.9 Anxiety disorder, unspecified
CPT/HCPCS: 99152; 62270; 81025; 84157; 82945; J2250; 88108

== ENCOUNTER 2022-06-27 16:50 | Emergency (ER) | payer OTHER ==
[2022-06-27 17:45] VITALS: RESP 16
[2022-06-27] MEDS ORDERED: diphenhydrAMINE 50 MG/ML 1 ML VIAL IVP STA (22:11)
[2022-06-27] MEDS ORDERED: CAFFEINE CITRATE 500 MG in DEXTROSE 5% IN WATER 50 ML IVPB STA ×2 (22:11)
[2022-06-27] MEDS ORDERED: HYDROmorphone 1 MG/ML 1 ML SYRINGE IVP STA (22:11)
[2022-06-27] MEDS ORDERED: PROCHLORPERAZINE INJ 10 MG/2 ML VIAL IVP STA (22:11)
[2022-06-27] MEDS ORDERED: KETOROLAC 15 MG/ML 1 ML VIAL IVP STA (22:11)
[2022-06-27] MEDS ORDERED: SODIUM CHLORIDE 0.9% 1,000 ML IV STA (22:11)
--- NOTE | 2022-06-27 22:13 | ED ---
Headache HPI - General Chief Complaint: Headache Stated Complaint: post op complications Time Seen by Provider: 06/27/22 22:04 Source: RN notes reviewed, old records reviewed Mode of arrival: ambulatory Limitations: no limitations - History of Present Illness Initial Comments: This is a 32-year-old female to the emergency department for evaluation of he adache is a post-LP headache. Patient had LP for both diagnostic and treatment of pseudotumor cerebri. Patient understands diagnosis does not want mom bar puncture again, refusing blood patch. Patient has no trauma no fevers. MD Complaint: headache, other (This is a spinal headache after LP) -: hour(s) Onset Description: gradual Location: right, left, frontal, occipital Severity: severe Severity scale (1-10): 9 Quality: aching, throbbing, pulsatile, other (Worse when she is standing up) Consistency: constant Improves With: nothing Worsens With: sitting/standing Context: recent spinal/epidural procedure Treatments Prior to Arrival: none - Related Data Home Medications Medication Instructions Recorded Confirmed metFORMIN HCL 500 mg PO HS 03/07/20 06/26/22 Norethindrone [Jeana] 0.35 mg PO DAILY 06/22/22 06/26/22 Pantoprazole [Protonix] 40 mg PO BID 06/22/22 06/26/22 Thyroid,Pork [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 ROS Other: All systems not noted in ROS Statement are negative. Past Medical History Past Medical History: GERD/Reflux, Thyroid Disorder Additional Past Medical History / Comment(s): ON METFORMIN FOR PCOS-NOT DIABETES. TENSION HEADACHES History of Any Multi-Drug Resistant Organisms: None Reported Past Surgical History: Cholecystectomy, Orthopedic Surgery Additional Past Surgical History / Comment(s): LT FOOT BONE SPUR REMOVE Past Anesthesia/Blood Transfusion Reactions: No Reported Reaction Past Psychological History: No Psychological Hx Reported Smoking Status: Never smoker Past Alcohol Use History: None Reported Past Drug Use History: None Reported - Past Family History Mother Family Medical History: No Reported History General Exam Limitations: no limitations General appearance: alert, in no apparent distress Head exam: Present: atraumatic, normocephalic, normal inspection Eye exam: Present: normal appearance, PERRL, EOMI. Absent: scleral icterus, conjunctival injection, periorbital swelling ENT exam: Present: normal exam, mucous membranes moist Neck exam: Present: normal inspection. Absent: tenderness, meningismus, lymphadenopathy Respiratory exam: Present: normal lung sounds bilaterally. Absent: respiratory distress, wheezes, rales, rhonchi, stridor Cardiovascular Exam: Present: regular rate, normal rhythm, normal heart sounds. Absent: systolic murmur, diastolic murmur, rubs, gallop, clicks GI/Abdominal exam: Present: soft, normal bowel sounds. Absent: distended, tenderness, guarding, rebound, rigid Extremities exam: Present: normal inspection, full ROM, normal capillary refill. Absent: tenderness, pedal edema, joint swelling, calf tenderness Back exam: Present: normal inspection Neurological exam: Present: alert, oriented X3, CN II-XII intact Psychiatric exam: Present: normal affect, normal mood Skin exam: Present: warm, dry, intact, normal color. Absent: rash Course Vital Signs 06/27/22 06/27/22 17:42 21:52 Temperature 98.1 F 98.2 F Pulse Rate 89 97 Respiratory 16 16 Rate Blood Pressure 133/75 147/95 O2 Sat by Pulse 97 98 Oximetry - Reevaluation(s) Reevaluation #1: 06/27/22 23:55 Medical records reviewed Reevaluation #2: 06/27/22 23:55 Headache resolved here in the ER Medical Decision Making - Medical Decision Making 32 female spinal headache one day after LP. Patient was given symptomatic therapy to be discharged, refusing blood patch - Lab Data Result diagrams: 06/27/22 22:23 06/27/22 22:23 Lab Results 06/27/22 06/27/22 Range/Units 22:23 22:23 WBC 15.5 H (3.8-10.6) k/uL RBC 4.89 (3.80-5.40) m/uL Hgb 13.2 (11.4-16.0) gm/dL Hct 38.9 (34.0-46.0) % MCV 79.5 L (80.0-100.0) fL MCH 26.9 (25.0-35.0) pg MCHC 33.8 (31.0-37.0) g/dL RDW 13.7 (11.5-15.5) % Plt Count 359 (150-450) k/uL MPV 8.6 Neutrophils % 82 % Lymphocytes % 12 % Monocytes % 3 % Eosinophils % 1 % Basophils % 0 % Neutrophils # 12.7 H (1.3-7.7) k/uL Lymphocytes # 1.9 (1.0-4.8) k/uL Monocytes # 0.4 (0-1.0) k/uL Eosinophils # 0.1 (0-0.7) k/uL Basophils # 0.0 (0-0.2) k/uL Sodium 142 (137-145) mmol/L Potassium 4.2 (3.5-5.1) mmol/L Chloride 107 (98-107) mmol/L Carbon Dioxide 24 (22-30) mmol/L Anion Gap 11 mmol/L BUN 13 (7-17) mg/dL Creatinine 0.85 (0.52-1.04) mg/dL Est GFR (CKD-EPI)AfAm >90 (>60 ml/min/1.73 sqM) Est GFR (CKD-EPI)NonAf >90 (>60 ml/min/1.73 sqM) Glucose 113 H (74-99) mg/dL Calcium 9.4 (8.4-10.2) mg/dL Phosphorus 3.8 (2.5-4.5) mg/dL Magnesium 2.1 (1.6-2.3) mg/dL Total Bilirubin 0.4 (0.2-1.3) mg/dL AST 19 (14-36) U/L ALT 19 (4-34) U/L Alkaline Phosphatase 109 (38-126) U/L Total Protein 7.6 (6.3-8.2) g/dL Albumin 4.6 (3.5-5.0) g/dL Disposition Clinical Impression: Rebound headache, Headache, Spinal headache Disposition: HOME SELF-CARE Condition: Good Instructions (If sedation given, give patient instructions): Acute Headache (ED) Is patient prescribed a controlled substance at d/c from ED?: No Referrals: Bebeto Jamison MD [Primary Care Provider] - 1-2 days Time of Disposition: 23:55
[2022-06-27] MEDS ORDERED: SODIUM CHLORIDE 0.9% IVPB ONE (22:30)
[2022-06-27] MEDS ORDERED: CAFFEINE SODIUM BENZOATE IVPB ONE (22:30)
[2022-06-27] MEDS ORDERED: methylPREDNISolone SOD SUCCIN 250 MG in SODIUM CHLORIDE 0.9% 100 ML IVPB ONE (22:30)
[2022-06-27 22:41] LABS: Basophils % (A) 0 %; Eosinophils # (A) 0.1 k/uL (0-0.7); Eosinophils % (A) 1 %; HCT 38.9 % (34.0-46.0); HGB 13.2 gm/dL (11.4-16.0); Lymphocytes # (A) 1.9 k/uL (1.0-4.8); Lymphocytes % (A) 12 %; MCH 26.9 pg (25.0-35.0); MCHC 33.8 g/dL (31.0-37.0); MCV 79.5 fL (80.0-100.0); Mean Platelet Volume 8.6; Monocytes # (A) 0.4 k/uL (0-1.0); Monocytes % (A) 3 %; Neutrophils # (A) 12.7 k/uL (1.3-7.7); Neutrophils % (A) 82 %; Platelet Count 359 k/uL (150-450); RBC 4.89 m/uL (3.80-5.40); RDW 13.7 % (11.5-15.5); WBC 15.5 k/uL (3.8-10.6)
[2022-06-27 23:06] LABS: ALT 19 U/L (4-34); AST 19 U/L (14-36); African American GFR (CKD) >90 (>60 ml/min/1.73 sqM); Albumin 4.6 g/dL (3.5-5.0); Alkaline Phosphatase 109 U/L (38-126); Anion Gap 11 mmol/L; Blood Urea Nitrogen 13 mg/dL (7-17); Calcium 9.4 mg/dL (8.4-10.2); Carbon Dioxide 24 mmol/L (22-30); Chloride 107 mmol/L (98-107); Glucose 113 mg/dL (74-99); Magnesium 2.1 mg/dL (1.6-2.3); Non-African American GFR(CKD) >90 (>60 ml/min/1.73 sqM); Phosphorus 3.8 mg/dL (2.5-4.5); Potassium 4.2 mmol/L (3.5-5.1); Sodium 142 mmol/L (137-145); Total Bilirubin 0.4 mg/dL (0.2-1.3); Total Protein 7.6 g/dL (6.3-8.2)
[2022-06-27] MEDS ORDERED: traMADol 50 MG STARTER PACK 3 TAB BTL PO STA (23:56)
[2022-06-27] MEDS ORDERED: IBUPROFEN 600 MG STARTER PACK 4 TAB BTL PO STA (23:56)
[2022-06-27] MEDS ORDERED: ACET/COD 300 MG/30 MG STARTER PACK 6 TAB BTL PO STA (23:56)
[2022-06-27] MEDS ORDERED: ONDANSETRON 4 MG ODT STARTER PACK 2 TAB BTL PO STA (23:56)
[2022-06-28 00:27] VITALS: BP 122/80; PULSE 72; TEMP 97.9
== END 2022-06-28 00:47 | disposition home or self-care (01) ==
LOC: EC 16:50
DX: G44.40 Drug-induced headache, not elsewhere classified, not intractable (principal); K21.9 Gastro-esophageal reflux disease without esophagitis; Z79.899 Other long term (current) drug therapy
CPT/HCPCS: 36415; 80053; 83735; 84100; 85025; 99284; 96365; 96375 ×5; 96361; J1200; J0780; J2930; J1170; J1885; S0119

== ENCOUNTER → 2022-08-02 | Outpatient (CLI) | payer OTHER ==
--- NOTE | 2022-08-02 09:03 | USB ---
Reason for Exam: Clinical finding. Patient History: Menarche at age 18. Patient has history of breast feeding. Patient used Hormonal Contraceptives for 8 years. Maternal grandmother had breast cancer, age 70. Maternal cousin had breast cancer, age 30. Maternal aunt had breast cancer, age 60. Technique: Method: Whole Breast Handheld. Findings: The whole breast of both breasts, the axilla of both breasts and the retroareolar of both breasts were scanned. A complete US of all four quadrants of the breast , axilla, and retro-areolar region were reviewed. On the right, at the 7:00 position, 8 cm from the nipple, there is a lobulated, solid, hypoechoic circumscribed mass measuring 2.0 x 1.6 x 1.5 cm. Posterior through transmission is demonstrated. No internal vascularity. No other solid or cystic lesion seen on either side. No axillary lymphadenopathy. Overall Assessment: Suspicious, BI-RAD 4 Management: Ultrasound Core Biopsy of the right breast. Note that we deferred mammogram at this time due to patient's age. After biopsy and clip placement, post biopsy mammogram can be performed. A fibroadenoma is suspected. Results were given to the patient verbally at the time of exam. Electronically signed and approved by: Garrett Franco M.D. Radiologist
== END | disposition home or self-care (01) ==
LOC: RADMAMWWP 06:58
PROVIDERS: ATTEND Family Medicine
DX: Z80.3 Family history of malignant neoplasm of breast (principal)

== ENCOUNTER → 2023-04-08 | Outpatient (CLI) | payer OTHER ==
--- NOTE | 2023-04-08 11:10 | USB ---
Reason for Exam: Follow-up at short interval from prior study. Patient History: Menarche at age 18. Patient has history of breast feeding. Patient used Hormonal Contraceptives for 8 years. 08/16/2022, Benign US biopsy breast VAD RT on the right side. Maternal grandmother had breast cancer, age 70. Maternal cousin had breast cancer, age 30. Maternal aunt had breast cancer, age 60. Prior Study Comparison: 08/02/2022 Bilateral US breast BILAT, [facility]. 08/16/2022 Right MG diagnostic mammo RT wo CAD, [facility]. Findings: The lower section of the breast of the right breast, the axilla of the left breast and the retroareolar of the left breast were scanned. Technique utilized:US breast limited RT Image; Ultrasound imaging of: Area of concern, retroareolar region and axilla. Area of previously biopsied right breast lesion was reported as 7:00 but is more at 10:00 and 8 cm from the nipple. No evidence for organizing fluid collection or mass. Overall Assessment: Benign, BI-RAD 2 Management: Screening Mammogram of both breasts at age 41. A clinical breast exam by your physician is recommended on an annual basis and results should be correlated with mammographic findings. This exam should not preclude additional follow-up of suspicious palpable abnormalities. Results were given to the patient verbally at the time of exam. Electronically signed and approved by: Bebeto Kebede DO
== END | disposition home or self-care (01) ==
LOC: RADUSWWP 09:38
PROVIDERS: ATTEND Family Medicine
DX: R92.8 Other abnormal and inconclusive findings on diagnostic imaging of breast (principal); Z80.3 Family history of malignant neoplasm of breast